=== PATIENT | female | born 1990 | race Caucasian/White ===

== ENCOUNTER 2016-05-21 22:54 | Outpatient (CLI) | payer OTHER ==
[~2016-05-21] VITALS: Ht 162.6 cm; Wt 70.3 kg
[~2016-05-21 22:54] MED LIST: ASPIR 8181 M1 PO; ASPIRIN81 M2 PO; CLEOCIN300 MG PO; FOLIC ACID1 MG PO; HEMOCYTE324 MG PO; IBUPROFEN800 MG PO; NOHOMEMEDS; PRENATAL VITAM1 EAC1 PO; SUBUTEX8 MG
[2016-05-21 23:44] VITALS: BP 114/60
[2016-05-22 00:05] VITALS: BP 117/67
[2016-05-22] MEDS ORDERED: COLACE100 MG PO (00:24)
[2016-05-22 03:49] LABS: AMPHETAMINES QUANT VALUE 0 NG/ML; BARBITUATES QUANT VALUE 0 NG/ML; BENZODIAZEPINES QUANT VALUE 0 NG/ML; BENZODIAZEPINES, URINE SCREEN Negative (200 ng/mL); MARIJUANA QUANT VALUE 0 NG/ML; OPIATES QUANTITATIVE VALUE 0 NG/ML; PHENCYCLIDINE QUANT VALUE 0 NG/ML
== END 2016-05-22 03:55 | disposition home or self-care (01) ==
LOC: LDRP-OP 22:54 → 2WEST 22:55 → LDRP-OP 07-28 10:04
PROVIDERS: Advanced Practice Midwife
DX: O46.93 Antepartum hemorrhage, unspecified, third trimester (principal); O99.89 Other specified diseases and conditions complicating pregnancy, childbirth and the puerperium; Z3A.34 34 weeks gestation of pregnancy
CPT/HCPCS: 59025; 76805; G0378

== ENCOUNTER 2016-06-29 07:24 | Inpatient (IN) | payer OTHER ==
[~2016-06-29] VITALS: Ht 162.6 cm; Wt 72.7 kg
[2016-06-29] VITALS (15 sets, daily range): BP systolic 103–131; BP diastolic 58–87
[~2016-06-29 07:24] MED LIST changes: +COLACE100 MG PO
[2016-06-29] MEDS ORDERED: TUMS500 MG PO (08:29)
[2016-06-29] MEDS ORDERED: ACETAMINOPHEN325 M3 PO (08:30)
[2016-06-29 09:16] LABS: AMPHETAMINES QUANT VALUE 0 NG/ML; BARBITUATES QUANT VALUE 0 NG/ML; BENZODIAZEPINES QUANT VALUE 0 NG/ML; BENZODIAZEPINES, URINE SCREEN Negative (200 ng/mL); MARIJUANA QUANT VALUE 0 NG/ML; OPIATES QUANTITATIVE VALUE 0 NG/ML; PHENCYCLIDINE QUANT VALUE 0 NG/ML
[2016-06-29 10:03] LABS: EOSINOPHIL (%) 2.1 % (0-5); EOSINOPHIL COUNT 0.3 K/uL (0-0.3); IMMATURE GRANULOCYTE (%) 0.6 % (0.0-0.7); IMMATURE GRANULOCYTE COUNT 0.7 K/uL; LYMPHOCYTE COUNT 3.5 K/uL (1.0-2.8); MCH 32.9 PG (29.0-34.0); MCHC 34.7 G/DL (30.0-36.0); MEAN PLAT.VOLUME 10.4 uM^3 (9.5-12.4); MONOCYTE (%) 6.3 % (3-12); MONOCYTE COUNT 0.8 K/uL (0-0.8); NEUTROPHIL (%) 61.8 % (45-76); NEUTROPHIL COUNT 7.4 K/uL (1.8-6.4); PLATELET COUNT 289 K/uL (156-360); RBC DIS.WIDTH-CV 12.7 % (11.8-14.6); RBC DIS.WIDTH-SD 41.9 % (39-53); RED BLOOD COUNT 3.37 M/uL (3.80-5.20)
[2016-06-29 12:33] LABS: METH RESISTANT S AUREUS PCR POSITIVE (NEGATIVE)
[2016-06-29 12:36] LABS: PROBE CHECK PASS
[2016-06-30 07:45] LABS: PLATELET COUNT 267 K/uL (156-360)
[2016-06-30 07:52] LABS: HEMATOCRIT 27.5 % (36.0-46.0); MCH 33.7 PG (29.0-34.0); MCHC 35.3 G/DL (30.0-36.0); MCV 95.5 FL (83-99); RBC DIS.WIDTH-CV 12.9 % (11.8-14.6); RBC DIS.WIDTH-SD 44.5 % (39-53); RED BLOOD COUNT 2.88 M/uL (3.80-5.20)
[2016-06-30 07:53] LABS: DELETE MACHINE DIFF? YES
[2016-06-30 08:12] LABS: ABS NEUTROPHIL COUNT 9.27; PLAT.SUFFICIENCY ADEQUATE; USER ID BLP
[2016-06-30 08:17] VITALS: BP 95/52
[2016-06-30 15:30] VITALS: BP 111/66
[2016-06-30 22:59] VITALS: BP 118/71
[2016-07-01 07:31] VITALS: BP 115/66
[2016-07-01] MEDS ORDERED: CHROMAGEN,1 CAPSULE PO (10:52)
== END 2016-07-01 13:05 | disposition home or self-care (01) | DRG 775 ==
LOC: LDRP-OP → 2WEST 07:25 → LDRP-OP 07-28 04:00
PROVIDERS: Advanced Practice Midwife
DX: O99.284 Endocrine, nutritional and metabolic diseases complicating childbirth (principal); E72.12 Methylenetetrahydrofolate reductase deficiency; O99.03 Anemia complicating the puerperium; D62 Acute posthemorrhagic anemia; O99.334 Smoking (tobacco) complicating childbirth; F17.210 Nicotine dependence, cigarettes, uncomplicated; Z3A.39 39 weeks gestation of pregnancy; Z37.0 Single live birth; Z88.1 Allergy status to other antibiotic agents
CPT/HCPCS: 80306 90; 85025; 87081; 87641; J0595; J7120; Q0169